=== PATIENT | female | born 1945 | race Caucasian/White ===

== ENCOUNTER → 2019-01-27 | Day surgery (SDC) | payer MEDICARE ==
[2019-01-25 15:44] LABS: BASOPHILS # (AUTO) 0.1 (0.0-0.1); BASOPHILS % 0.7 % (0.0-1.0); EOSINOPHILS # (AUTO) 0.3 (0.0-0.4); EOSINOPHILS % 2.7 % (0.0-6.0); HEMATOCRIT 41.9 % (34.2-44.1); HEMOGLOBIN 13.5 g/dL (12.0-16.0); MEAN CORPUSCULAR HEMOGLOBIN 29.3 pg (28-32); MEAN CORPUSCULAR HGB CONC 32.2 g/dL (31-35); MEAN CORPUSCULAR VOLUME 91.1 fL (81-99); MONOCYTES # (AUTO) 0.6 (0.2-0.8); NEUTROPHILS # (AUTO) 6.1 (2.1-6.9); NEUTROPHILS % 60.1 % (38.7-80.0); PLATELET COUNT 218 x10e3/uL (140-360); RED CELL DISTRIBUTION WIDTH 13.1 % (11.7-14.4)
[2019-01-25 15:54] LABS: INR 0.94; PROTHROMBIN TIME 13.1 seconds (11.9-14.5)
[2019-01-25 16:04] LABS: ALANINE AMINOTRANSFERASE 23 IU/L (0-55); ALBUMIN 3.6 g/dL (3.5-5.0); ALBUMIN/GLOBULIN RATIO 1.1 (0.8-2.0); ALKALINE PHOSPHATASE 91 IU/L (40-150); ANION GAP 10.9 mmol/L (8-16); BLOOD UREA NITROGEN 11 mg/dL (7-26); BUN/CREATININE RATIO 12 (6-25); CALCIUM 9.2 mg/dL (8.4-10.2); CARBON DIOXIDE 32 mmol/L (22-29); CHLORIDE 100 mmol/L (98-107); EST GLOMERULAR FILTRATION RATE > 60 ML/MIN (60-); GLUCOSE 104 mg/dL (74-118); POTASSIUM 3.9 mmol/L (3.5-5.1); SODIUM 139 mmol/L (136-145)
[2019-01-27] VITALS (9 sets, daily range): BP systolic 110–171; BP diastolic 56–85
[~2019-01-27] VITALS: Ht 167.6 cm; Wt 121.6 kg
[~2019-01-27] MED LIST: ACETAMINOPHEN325 M1 PO; ALEVE220 MG PO; AMITRIPTYLINE H25 MG PO; ATENOLOL50 MG PO; FENTANYL CITRATE/PF 100MCG/2 ML INJ ONE; HEPARIN SOD/SOD CHLORIDE 2,000 ML ONE; IOPAMIDOL 370 MG/ML 200 ML INFUS..BTL INJ ONE; LIDOCAINE HCL 2% LOCAL 20 ML VIAL ONE; LOPERAMIDE2 MG PO; MIDAZOLAM HCL 2 MG/2 ML VIAL ONE; MULTI-VITAMIN1 EACH PO; PANTOPRAZOLE SO40 MG PO; PHILLIPS' COLO1 EACH PO; SIMVASTATIN20 MG PO; SODIUM CHLORIDE 0.9% 1000ML 1,000 ML ONE; VERAPAMIL HCL 2.5 MG/ML 2 ML VIAL ONE; ZANTAC150 MG PO
--- OUTSIDE RECORDS SUMMARY | 2019-01-27 08:31 | XMS REPORT | Continuity of Care Document ---
Author Author [employer] Address Unknown Phone Unavailable Care Team Providers Care Real Estate Management Specialist Name Role Phone [employer] Unavailable Unavailable Problems Problem Status Onset Date Classification Date Reported Comments Source Encounter for screening mammogram for malignant neoplasm of breast 04/16/2018 10/27/2018 [facility] ROUTINE SCREENING LAST MMG W/MH //// Active 02/10/2018 [facility] MASS Active 05/14/2017 [facility] DX: ABN MAMMO PREV MMG SE 04-07-17 Active 05/01/2017 [facility] ROUTINE SCREENING LAST MMG W/ Active 03/12/2017 [facility] Z12.31 - ENCNTR SCREEN MAMMOGRAM FOR MA Active 04/03/2016 MEGAN Chen DX: ROUTINE SCREENING Active 04/03/2016 [facility] SCREENING Active 03/12/2016 [facility] Discharge Diagnosis: Allergic reaction caused by a drug 08/30/2015 09/02/2015 [facility] RASH Active 08/30/2015 [facility] LUMP ON RIGHT BREAST Active 03/27/2015 [facility] V76.12 - SCREEN MAMMOGRA Active 03/14/2015 MEGAN Chen Clostridium difficile Active Problem 10/27/2018 [facility] Diarrhea Active Problem 10/27/2018 [facility] GERD - Gastro-esophageal reflux disease Active Problem 10/27/2018 [facility] Hypercholesterolemia Active Problem 10/27/2018 [facility] Hypertension Active Problem 10/27/2018 [facility] Morbid obesity Active Problem 10/27/2018 [facility] UNSPECIFIED LUMP IN BREAST Active [facility] ENCNTR SCREEN MAMMOGRAM FOR MALIGNANT NE Active [facility] OTH ABN AND INCONCLUSIVE FINDINGS ON DX Active [facility] Medications Medication Details Route Status Patient Instructions Ordering Provider Order Date Source vancomycin 125 mg oral capsule 125 mg=1 cap, PO, Q6H, X 10 day, # 40 cap, 0 Refill(s) Active 08/31/2015 [facility] Sodium Chloride 0.154 MEQ/ML Injectable Solution 1,000 mL, 1,000 ml/hr, Infuse Over: 1 hr, Route: IV, 1,000, Drug form: INJ, ONCE, Priority: STAT, Dosing Weight 124.545 kg, Start date: 08/30/15 20:55:00, Duration: 1 doses or times, Stop date: 08/30/15 20:55:00 Inactive 08/31/2015 [facility] Benadryl 25 mg, Route: IVP, ONCE, Dosing Weight 124.545, kg, Priority: STAT, Start date: 08/30/15 18:04:00, Stop date: 08/30/15 18:04:00 Inactive 08/30/2015 [facility] Allergies, Adverse Reactions, Alerts Substance Category Reaction Severity Reaction type Status Date Reported Comments Source codeine Assertion Drug allergy Active [facility] vancomycin Assertion Drug allergy Active [facility] lisinopril Assertion Drug allergy Active [facility] Flagyl Assertion Drug allergy Active [facility] Immunizations No Data Provided for This Section Results Order Name Results Value Reference Range Date Interpretation Comments Source ELECTROLYTES AGAP 11.8 10.0 - 20.0 08/31/2015 [facility] ELECTROLYTES B/C Ratio 21 6 - 25 08/31/2015 [facility] ELECTROLYTES Globulin 3.7 2.0 - 4.0 08/31/2015 [facility] ELECTROLYTES A/G Ratio 1.0 0.7 - 1.6 08/31/2015 [facility] ELECTROLYTES Alk Phos 82 39 - 136 08/31/2015 [facility] ELECTROLYTES Bili Total 0.5 0.2 - 1.3 08/31/2015 [facility] ELECTROLYTES eGFR 44 08/31/2015 Result Comment: The eGFR is calculated using the CKD-EPI formula. In most young, healthy individuals the eGFR will be >90 mL/min/1.73m2. The eGFR declines with age. An eGFR of 60-89 may be normal in some populations, particularly the elderly, for whom the CKD-EPI formula has not been extensively validated. Use of the eGFR is not recommended in the following populations:

Individuals with unstable creatinine concentrations, including patients and those with serious co-morbid conditions.

Patients with extremes in muscle mass or diet.

The data above are obtained from the National Kidney Disease Education Program (NKDEP) which additionally recommends that when the eGFR is used in patients with extremes of body mass index for purposes of drug dosing, the eGFR should be multiplied by the estimated BMI. [facility] ELECTROLYTES ALT 31 0 - 65 08/31/2015 [facility] ELECTROLYTES AST 22 0 - 37 08/31/2015 [facility] ELECTROLYTES BUN 26 7 - 22 08/31/2015 [facility] ELECTROLYTES Creatinine Lvl 1.25 0.50 - 1.40 08/31/2015 [facility] ELECTROLYTES Sodium Lvl 138 135 - 145 08/31/2015 [facility] ELECTROLYTES Glucose Lvl 112 70 - 99 08/31/2015 [facility] ELECTROLYTES Total Protein 7.4 6.4 - 8.4 08/31/2015 [facility] ELECTROLYTES Potassium Lvl 3.8 3.5 - 5.1 08/31/2015 [facility] ELECTROLYTES Albumin Lvl 3.7 3.5 - 5.0 08/31/2015 [facility] ELECTROLYTES Chloride Lvl 101 95 - 109 08/31/2015 [facility] ELECTROLYTES CO2 29 24 - 32 08/31/2015 [facility] ELECTROLYTES Calcium Lvl 8.7 8.5 - 10.5 08/31/2015 [facility] HEMATOLOGY Monocytes # 0.8 0.0 - 0.8 08/31/2015 [facility] HEMATOLOGY Lymphocytes # 2.4 1.0 - 5.5 08/31/2015 [facility] HEMATOLOGY Segs-Bands # 6.9 1.5 - 8.1 08/31/2015 [facility] HEMATOLOGY Lymphocytes 23.6 20.0 - 40.0 08/31/2015 [facility] HEMATOLOGY Basophils 0.7 0.0 - 1.0 08/31/2015 [facility] HEMATOLOGY Basophils # 0.1 0.0 - 0.2 08/31/2015 [facility] HEMATOLOGY Eosinophils # 0.1 0.0 - 0.5 08/31/2015 [facility] HEMATOLOGY Segs 66.9 45.0 - 75.0 08/31/2015 [facility] HEMATOLOGY Monocytes 7.5 2.0 - 12.0 08/31/2015 [facility] HEMATOLOGY Eosinophils 1.3 0.0 - 4.0 08/31/2015 [facility] HEMATOLOGY Platelet 235 133 - 450 08/31/2015 [facility] HEMATOLOGY MPV 8.7 7.4 - 10.4 08/31/2015 [facility] HEMATOLOGY RDW 12.6 11.5 - 14.5 08/31/2015 [facility] HEMATOLOGY MCH 28.1 27.0 - 31.0 08/31/2015 [facility] HEMATOLOGY MCHC 32.8 32.0 - 36.0 08/31/2015 [facility] HEMATOLOGY Hct 42.3 36.0 - 48.0 08/31/2015 [facility] HEMATOLOGY MCV 85.7 80.0 - 98.0 08/31/2015 [facility] HEMATOLOGY WBC 10.3 3.7 - 10.4 08/31/2015 [facility] HEMATOLOGY RBC 4.94 4.20 - 5.40 08/31/2015 [facility] HEMATOLOGY Hgb 13.9 12.0 - 16.0 08/31/2015 [facility] Pathology Reports No Data Provided for This Section Diagnostic Reports Report Value Date Source Breast Mammo Scrn KARUNA w garry incl CAD MA BILATERAL DIGITAL SCREENING MAMMOGRAM 3D/2D WITH CAD: 04/09/2018 CLINICAL: /Routine. Current study was evaluated with a Computer Aided Detection (CAD) system. COMPARISON:Comparison is made to exams dated: 05/19/2017 mammogram, 04/07/2017 mammogram, 04/30/2016 mammogram, 04/05/2015 mammogram - [facility], 02/14/2014 mammogram, and 01/26/2013 mammogram - [facility]. TECHNIQUE: Digital Breast Tomosynthesis was performed and utilized for Interpretation. Insmeda Version 1.3 was utilized for computer aided detection. FINDINGS: The tissue of both breasts is heterogeneously dense, which could obscure detection of small masses. There are benign appearing calcifications and masses in both breasts. There also is a biopsy clip in the left breast. There are mole markers on both breasts. No significant masses, calcifications, or other findings are seen in either breast. There has been no significant interval change. IMPRESSION: BENIGN RECOMMENDATION:There is no mammographic evidence of malignancy. A 1 year screening mammogram is recommended.(04/10/2019) This exam was interpreted at [id number] for [facility] [place]. Natasha lion/hubert:04/09/2018 14:50:31 Nurse Staff Community Health(s): Mary Martin, [facility] letter sent: BI-RADS 1/2 Dense Mammogram BI-RADS: 2 Benign 04/09/2018 [facility] Breast Mammo Diag UNI incl CAD MA CLINICAL: Post biopsy clip confirmation mammogram after ultrasound biopsy. Current study was evaluated with a Computer Aided Detection (CAD) system. COMPARISON:Comparison is made to exams dated: 04/07/2017 mammogram, 04/30/2016 mammogram, 04/05/2015 mammogram, 05/19/2017 ultrasound biopsy, 05/14/2017 ultrasound, and 04/05/2015 ultrasound - [facility]. TECHNIQUE: Mammographic views were obtained using digital acquisition. Insmeda Version 1.3 was utilized for computer aided detection. FINDINGS: The tissue of left breast is heterogeneously dense, which could obscure detection of small masses. Post procedure digital mammogram demonstrates the biopsy clip in appropriate position. No other significant interval change. There are benign appearing scattered calcifications in the left breast. There are mole markers on the left breast. IMPRESSION: POST PROCEDURE MAMMOGRAM FOR MARKER PLACEMENT RECOMMENDATION:Biopsy clip is in appropriate position. Please see biopsy report for further details. Follow up with ACR/SBI guidelines. This exam was interpreted at [id number] for [facility]. Natasha lion/hubert:05/19/2017 15:05:03 Nurse Staff Community Health(s): Sadia Contreras, [facility] Mammogram BI-RADS: Post-procedure mammogram for marker placement 05/19/2017 [facility] BX Uni w Clip Primary Side US CLINICAL: Left breast mass 3 o'clock. PATIENT CONSENT: Oral and written informed consent was obtained. Risks, benefits, and alternatives were discussed with the patient. Risks include but are not limited to pain, infection, bleeding, incomplete procedure, repeat procedure, pneumothorax, damage to surrounding tissues, and allergic reaction. The patient understands the plan and wishes to proceed. A time out was performed immediately prior to the procedure to confirm the patient's identity (name/date of ) and correct procedure site. Correlation is made to exams dated: 04/05/2015 ultrasound, 05/14/2017 ultrasound, 04/07/2017 mammogram, 04/30/2016 mammogram, 04/05/2015 mammogram - [facility], and 02/14/2014 mammogram - [facility]. An ultrasound guided biopsy using real-time ultrasound was performed for the concerning 5 mm taller than wide circumscribed oval mass located in the left breast at 3 o'clock middle depth 2 cm from the nipple. This was described on the previous ultrasound report. The skin was prepped in the usual manner. 5 ccs of 1% lidocaine was administered during the procedure. The abnormality was approached from the lateral aspect. A 14 gauge biopsy needle was placed adjacent to the abnormality through an introducer device under ultrasound guidance. Once the needle was documented to be in the correct location, multiple specimens were obtained using an Achieve automated firing device. A Gel Liang UltraCor braided R/omega shaped clip was inserted into the biopsy cavity. Post procedure digital mammographic and ultrasound imaging interpreted on a dedicated mammography workstation demonstrates the clip at the targeted area and partial removal of the abnormality. [facility]. IMPRESSION: ULTRASOUND GUIDED BIOPSY BENIGN Ultrasound guided biopsy of the 5 mm taller than wide mass in the left breast at 3 o'clock middle depth 2 cm from the nipple was successful with no apparent post procedure complications. Pathology indicates benign results - 'Fragments of fibroadenomatoid nodule with adenosis and associated microcalcifications. Negative for in situ or invasive carcinoma'. Pathology results are concordant with imaging findings. Return to annual mammogram screening schedule is recommended.(04/07/2018) This exam was interpreted at [id number] for [facility]. Natasha robbinst/:05/22/2017 09:32:22 Nurse Staff Community Health(s): Gui Hahn [facility] letter sent: Post Bx Results 05/19/2017 [facility] Breast Complete Karuna US COMPLETE ULTRASOUND OF BOTH BREASTS AND AXILLA: 05/14/2017 CLINICAL: Dense breasts abnormal mammogram, mammographic nodule/density. COMPARISON:Comparison is made to exams dated: 04/07/2017 mammogram, 04/30/2016 mammogram, 04/05/2015 ultrasound, 04/05/2015 mammogram - [facility], 02/14/2014 mammogram, and 01/26/2013 mammogram - [facility]. TECHNIQUE: Color flow and real-time ultrasound of both breasts four quadrants, retroareolar, and axilla regions were performed. Sharp scale images of the real- time examination were reviewed. FINDINGS: There are benign scattered cysts both breasts that correlate with mammography. There is a 5 mm irregular mass with an indistinct margin in the left breast at 3 o'clock middle depth 2 cm from the nipple. This irregular mass is hypoechoic with posterior acoustic shadowing. No abnormalities were seen sonographically in either axilla. IMPRESSION: SUSPICIOUS OF MALIGNANCY The 5 mm irregular mass in the left breast is at an intermediate suspicion for malignancy. An ultrasound guided biopsy is recommended. The physician's office was notified. The results were reviewed with the patient. SUMMARY: The patient scheduled her procedure prior to leaving the [facility]. The physician's office was notified at 1420 hours on the day of the exam of the above findings and recommendations. An order for this procedure will need to be provided by the referring physician. This exam was interpreted at [id number] for [facility]. Natasha robbinst/:05/14/2017 14:35:35 Nurse Staff Community Health(s): Gui Hahn [facility] letter sent: BI-RADS 4/5 Ultrasound BI-RADS: 4b Suspicious abnormality - intermediate suspicion of malignancy 05/14/2017 [facility] Breast Mammo Scrn KARUNA incl CAD MA BILATERAL DIGITAL SCREENING MAMMOGRAM WITH CAD: 04/07/2017 CLINICAL: /Routine. Current study was evaluated with a Computer Aided Detection (CAD) system. COMPARISON:Comparison is made to exams dated: 04/30/2016 mammogram, 04/05/2015 mammogram - [facility], 02/14/2014 mammogram, 01/26/2013 mammogram - [facility], 01/23/2012 mammogram, and 01/02/2011 mammogram - [facility]. TECHNIQUE: Mammographic views were obtained using digital acquisition. Insmeda Version 1.3 was utilized for computer aided detection. The tissue of both breasts is extremely dense. This may lower the sensitivity of mammography. FINDINGS: Multiple benign appearing, circumscribed masses are noted bilaterally which are fluctuating in size most consistent with benign cysts. There are benign appearing scattered calcifications in both breasts. There are mole markers on both breasts. No significant masses, calcifications, or other findings are seen in either breast. There has been no significant interval change. IMPRESSION: BENIGN RECOMMENDATION:Multiple benign appearing, circumscribed masses are noted bilaterally which are fluctuating in size most consistent with benign cysts. Ultrasound may be performed for confirmation and to exclude underlying pathology. There is no mammographic evidence of malignancy. A 1 year screening mammogram is recommended.(04/08/2018) This exam was interpreted at [id number] for [facility]. SUMMARY: As the patient has dense breast parenchyma, this could obscure additional abnormalities. The patient would likely benefit from a supplemental screening test such as bilateral ultrasound. This should be discussed with the patient by the referring physician. Alanis Ladd M.D. ap/penrad:04/07/2017 14:41:49 Nurse Staff Community Health(s): Chitra Padilla RT(R)(M), [facility] letter sent: BI-RADS 1/2 Dense Mammogram BI-RADS: 2 Benign 04/07/2017 [facility] Digital Mammo Screening Karuna MA - DIGITAL MAMMO SCREENING KARUNA MA BILATERAL DIGITAL SCREENING MAMMOGRAM WITH CAD: 04/30/2016 CLINICAL: Routine. Current study was evaluated with a Computer Aided Detection (CAD) system. Comparison is made to exams dated: 04/05/2015 mammogram - [facility], 02/14/2014 mammogram, 01/26/2013 mammogram - [facility], 01/23/2012 mammogram, 01/02/2011 mammogram and 12/28/2009 mammogram - [facility]. There are scattered fibroglandular densities in both breasts. There are benign appearing scattered calcifications and densities in both breasts. There are mole markers on both breasts. No significant masses, calcifications, or other findings are seen in either breast. There has been no significant interval change. IMPRESSION: BENIGN There is no mammographic evidence of malignancy. A 1 year screening mammogram is recommended. Natasha Petty M.D. jt/penrad:04/30/2016 15:57:59 Nurse Staff Community Health: Sadia Contreras, [facility] This exam was dictated and interpreted by [id number] for [facility]. letter sent: Normal exam Mammogram BI-RADS: 2 Benign 04/30/2016 [facility] Breast Complete Uni US - BREAST COMPLETE UNI US/R ULTRASOUND OF RIGHT BREAST AND RIGHT AXILLA: 04/05/2015 CLINICAL: Right breast superior lumpiness/nodularity. Comparison is made to exams dated: 04/05/2015 mammogram - [facility], 02/14/2014 mammogram, 01/26/2013 mammogram - [facility], 01/23/2012 mammogram, 01/02/2011 mammogram and 12/28/2009 mammogram - [facility]. Color flow and real-time ultrasound of the right breast and axilla were performed. Sharp scale images of the real-time examination were reviewed. All 4 quadrants, the retroareolar region and axilla are evaluated in this exam. There are three small benign simple and minimally complicated, less than 5 mm in size, cysts right breast at 12 o'clock that correlate with mammography. No abnormalities were seen sonographically in the right axilla. IMPRESSION: BENIGN There is no sonographic evidence of malignancy. There are no suspicious mammographic or sonographic abnormalities seen in the right breast to correspond with the palpable nodularities by the referring physician in the superior aspect which likely represents normal fibroglandular tissue. A 1 year screening mammogram is recommended. The results were reviewed with the patient. The patient denies any areas of clinical concern herself. Natasha lion/:04/05/2015 11:19:49 Nurse Staff Community Health: Gui Hahn, [facility] This exam was dictated and interpreted by [id number] for [facility]. letter sent: Normal exam Ultrasound BI-RADS: 2 Benign 04/05/2015 [facility] Digital Mammo DX Karuna MA - DIGITAL MAMMO DX KARUNA MA BILATERAL DIGITAL DIAGNOSTIC MAMMOGRAM WITH CAD: 04/05/2015 CLINICAL: Mobile palpable Breast Lump superior right breast. Current study was evaluated with a Computer Aided Detection (CAD) system. Comparison is made to exams dated: 02/14/2014 mammogram, 01/26/2013 mammogram - [facility], 01/23/2012 mammogram, 01/02/2011 mammogram and 12/28/2009 mammogram - [facility]. There are scattered fibroglandular densities in both breasts. There are benign appearing scattered calcifications and densities in both breasts. There are mole markers on both breasts. No significant masses, calcifications, or other findings are seen in either breast. There has been no significant interval change. IMPRESSION: INCOMPLETE: NEEDS ADDITIONAL IMAGING EVALUATION There are no new/suspicious mammographic abnormalities seen in the right breast to correspond with the physician palpated nodularities in the superior aspect, however ultrasound is recommended. The results were reviewed with the patient. SUMMARY: Ultrasound will be performed at this time; please see dedicated separate report. Natasha lion/:04/05/2015 11:20:48 Nurse Staff Community Health: Maren Eden, [facility] This exam was dictated and interpreted by [id number] for [facility]. Mammogram BI-RADS: 0 Indeterminate 04/05/2015 [facility] Consultation Notes No Data Provided for This Section Discharge Summaries No Data Provided for This Section History and Physicals No Data Provided for This Section Vital Signs Vital Sign Value Date Comments Source Systolic (mm Hg) 142 08/31/2015 [facility] Diastolic (mm Hg) 47 08/31/2015 [facility] Respitory Rate 18 08/31/2015 [facility] Temperature Oral (F) 97.9 F 08/31/2015 [facility] Heart Rate 63 08/31/2015 [facility] Systolic (mm Hg) 138 08/31/2015 [facility] Diastolic (mm Hg) 60 08/31/2015 [facility] Respitory Rate 18 08/31/2015 [facility] Heart Rate 68 08/31/2015 [facility] BMI Calculated 44.32 08/30/2015 [facility] Weight 124.545 08/30/2015 [facility] Height 167.64 cm 08/30/2015 [facility] Heart Rate 73 08/30/2015 [facility] Respitory Rate 17 08/30/2015 [facility] Temperature Oral (F) 97.8 F 08/30/2015 [facility] Systolic (mm Hg) 140 08/30/2015 [facility] Diastolic (mm Hg) 74 08/30/2015 [facility] Encounters Location Location Details Encounter Type Encounter Number Reason For Visit Attending Provider ADM Date DC Date Status Source [facility] [id number] Keri Canada 02/14/2014 02/15/2014 MEGAN [facility] [facility] [id number] Keri Canada 02/17/2014 02/18/2014 [facility] Outpatient [id number] Keri Canada 04/05/2015 04/06/2015 [facility] [id number] Ismael Fountain 08/30/2015 08/31/2015 [facility] Outpatient [id number] Non Physician 04/30/2016 05/01/2016 [facility] Outpatient [id number] MICHAEL ESTRELLA 01/25/2017 Active [facility] Outpatient [id number] Non Physician 04/07/2017 04/08/2017 [facility] Outpatient [id number] Keri Canada 05/14/2017 05/15/2017 [facility] Outpatient [id number] Keri Canada 05/19/2017 05/20/2017 [facility] Outpatient [id number] Keri Canada 04/09/2018 04/10/2018 [facility] Procedures Procedure Code Date Perfomer Comments Source Cholecystectomy [id number] [facility] Hemorrhoidectomy [id number] [facility] Hysterectomy [id number] [facility] Rectal operation [id number] [facility] Assessment and Plan No Data Provided for This Section Plan of Care No Data Provided for This Section Social History Social History Date Source Social History TypeResponse Smoking Status Never smoker; Exposure to Tobacco Smoke None; Cigarette Smoking Last 365 Days No; Reg Smoking Cessation Counseling No entered on: 01/25/17 01/25/2017 [facility] Family History No Data Provided for This Section Advance Directives No Data Provided for This Section Functional Status No Data Provided for This Section
--- OUTSIDE RECORDS SUMMARY | 2019-01-27 08:31 | XMS REPORT | Summary of Care ---
Author Organization Unknown Address Unknown Phone Unavailable Encounter HQ Encntr_remingtonabner(OLAMIDE) [id number] Date(s): 02/14/14 - 02/14/14 [facility] Outpatient Imaging [place] [address] [place], [place] [id number] [place] [address] Discharge Disposition: Home Physician Attending: Keri Canada MD Reason for Visit V76.12 - SCREEN MAMMOGRA Problem List No data available for this section Allergies, Adverse Reactions, Alerts No data available for this section Medications No data available for this section Medications Administered During Your Visit No data available for this section Immunizations No data available for this section
--- OUTSIDE RECORDS SUMMARY | 2019-01-27 08:31 | XMS REPORT | Summary of Care ---
Author Author [facility] Organization [facility] Address Unknown Phone Unavailable Encounter HQ Maricarmen_demian(FIN) [id number] Date(s): 04/09/18 - 04/09/18 [facility] [address] [place] [address]- Encounter Diagnosis Encounter for screening mammogram for malignant neoplasm of breast (Final) - 04/15/18 Discharge Disposition: Home or Self Care Attending Physician: Keri Canada MD Referring Physician: Physician, Non Associated MD Vital Signs No data available for this section Problem List Condition Effective Dates Status Health Status Informant Clostridium Active difficile(Confirmed) Diarrhea(Confirmed) Active GERD - Active Gastro-esophageal reflux disease(Confirmed) Hypercholesterolemia Active (Confirmed) Hypertension(Confirm Active ed) Morbid Active obesity(Confirmed) Allergies, Adverse Reactions, Alerts Substance Reaction Severity Status codeine Active vancomycin Active lisinopril Active Flagyl Active Medications No data available for this section Results No data available for this section Immunizations No data available for this section Procedures Procedure Date Related Diagnosis Body Site Status Cholecystectomy Completed Hemorrhoidectomy Completed Hysterectomy Completed Rectal operation Completed Social History Social History Type Response Smoking Status Never smoker; Exposure to Tobacco Smoke None; Cigarette Smoking Last 365 Days No; Reg Smoking Cessation Counseling No entered on: 01/25/17 Assessment and Plan No data available for this section
--- OUTSIDE RECORDS SUMMARY | 2019-01-27 08:31 | XMS REPORT | Summary of Care ---
Author Author [facility] Organization [facility] Address Unknown Phone Unavailable Encounter HQ Destiny(OLAMIDE) [id number] Date(s): 05/19/17 - 05/19/17 [facility] [address] [place] [address]- Discharge Disposition: Home or Self Care Attending Physician: Keri Canada MD Referring Physician: Keri Canada MD Vital Signs No data available for [...] Procedures Procedure Date Related Diagnosis Body Site Cholecystectomy Hemorrhoidectomy Hysterectomy Rectal operation Social History Social History Type Response Smoking Status Never smoker; Exposure to Tobacco Smoke None; Cigarette Smoking Last 365 Days No; Reg Smoking Cessation Counseling No Assessment and Plan No data available for this section
--- OUTSIDE RECORDS SUMMARY | 2019-01-27 08:31 | XMS REPORT | Summary of Care ---
Author Author [facility] Organization [facility] Address Unknown Phone Unavailable Encounter HQ Maricarmen_demian(FIN) [id number] Date(s): 04/07/17 - 04/07/17 [facility] [address] [place] [address]- Discharge Disposition: Home or Self Care Attending [...] Alerts Substance Reaction Severity Status codeine Active Flagyl Active lisinopril Active vancomycin Active Medications No data available for this [...]
--- OUTSIDE RECORDS SUMMARY | 2019-01-27 08:31 | XMS REPORT | Summary of Care ---
Author Author [facility] Organization [facility] Address Unknown Phone Unavailable Encounter HQ Destiny(FIN) [id number] Date(s): 05/14/17 - 05/14/17 [facility] [address] [place] [address]- [phone] Discharge Disposition: Home or Self Care Attending [...]
--- OUTSIDE RECORDS SUMMARY | 2019-01-27 08:32 | XMS REPORT ---
Author Author [facility] Address Unknown Phone Unavailable Care Team Providers Care Golf Ball Winder Name Role Phone Unavailable Unavailable Problems This patient has no known problems. Allergies, Adverse Reactions, Alerts This patient has no known allergies or adverse reactions. Medications This patient has no known medications.
--- OUTSIDE RECORDS SUMMARY | 2019-01-27 08:32 | XMS REPORT | Summary of Care ---
Author Author [facility] Organization [facility] Address Unknown Phone Unavailable Encounter HQ Patricior_demian(FIN) [id number] Date(s): 04/30/16 - 04/30/16 [facility] [address] [place] [address]- Discharge Disposition: Home or Self Care Attending Physician: Keri Canada MD Referring Physician: Physician, Non Associated MD Vital Signs No data available for this section Problem List Condition Effective Dates Status Health Status Informant Clostridium Active difficile(Confirmed) Diarrhea(Confirmed) Active GERD - Active Gastro-esophageal reflux disease(Confirmed) Hypercholesterolemia Active (Confirmed) Hypertension(Confirm Active ed) Allergies, Adverse Reactions, Alerts Substance Reaction Severity Status codeine Active Medications No data available for this [...]
--- OUTSIDE RECORDS SUMMARY | 2019-01-27 08:32 | XMS REPORT | Summary of Care ---
Author Author [facility] Organization [facility] Address Unknown Phone Unavailable Encounter HQ Encntr_alias(FIN) [id number] Date(s): 04/05/15 - 04/05/15 [facility] [address] [place] [address]- Discharge Disposition: Home Attending Physician: Keri Canada MD Referring Physician: Keri Canada MD Vital Signs No data available for this section Problem List No data available for this section Allergies, Adverse Reactions, Alerts No data available for this section Medications No data available for this section Results No data available for this section Immunizations No data available for this section Procedures No data available for this section Social History No data available for this section Assessment and Plan No data available for this section
--- OUTSIDE RECORDS SUMMARY | 2019-01-27 08:32 | XMS REPORT | Summary of Care ---
Author Organization Unknown Address Unknown Phone Unavailable Encounter HQ Encntr_demian(OLAMIDE) [id number] Date(s): 02/17/14 - 02/17/14 [facility] Outpatient Imaging [place] [address] Discharge Disposition: Home Physician Attending: Keri Canada MD Reason for Visit V49.81 - ASYMPT POSTMENO Problem List No data available for this section Allergies, Adverse Reactions, Alerts No data available for this section Medications No data available for this section Medications Administered During Your Visit No data available for this section Immunizations No data available for this section
--- OUTSIDE RECORDS SUMMARY | 2019-01-27 08:32 | XMS REPORT | Summary of Care ---
Author Author [facility] Organization [facility] Address Unknown Phone Unavailable Encounter DENVER Dixon(OLAMIDE) [id number] Date(s): 08/30/15 - 08/30/15 [facility] [address] [place] [address]- Discharge Diagnosis: Allergic reaction caused by a drug Discharge Disposition: Home Attending Physician: Ismael Fountain MD Vital Signs 1 2 3 Most recent to oldest [Reference Range]: 167.64 cm (08/30/15 5:53 PM) Height 97.9 DegF (08/30/15 10:50 PM) 97.8 DegF (08/30/15 5:53 PM) Temperature Oral [96.4-99.1 DegF] 142/47 mmHg *HI* (08/30/15 10:50 PM) 138/60 mmHg (08/30/15 9:00 PM) 140/74 mmHg (08/30/15 5:53 PM) Blood Pressure [90-140/60-90 mmHg] 18 BRMIN (08/30/15 10:50 PM) 18 BRMIN (08/30/15 9:00 PM) 17 BRMIN (08/30/15 5:53 PM) Respiratory Rate [14-20 BRMIN] 63 bpm (08/30/15 10:50 PM) 68 bpm (08/30/15 9:00 PM) 73 bpm (08/30/15 5:53 PM) Peripheral Pulse Rate [60-100 bpm] 124.545 kg (08/30/15 5:53 PM) Weight 44.32 m2 (08/30/15 5:53 PM) Body Mass Index Problem List Condition Effective Dates Status Health Status Informant Clostridium Active difficile(Confirmed) Diarrhea(Confirmed) Active GERD - Active Gastro-esophageal reflux disease(Confirmed) Hypercholesterolemia Active (Confirmed) Hypertension(Confirm Active ed) Allergies, Adverse Reactions, Alerts Substance Reaction Severity Status codeine Active Medications Benadryl 25 mg, Route: IVP, ONCE, Dosing Weight 124.545, kg, Priority: STAT, Start date: 08/30/15 18:04:00, Stop date: 08/30/15 18:04:00 Start Date: 08/30/15 Stop Date: 08/30/15 Status: Completed Sodium Chloride 0.9% (Bolus) IV 1,000 mL, 1,000 ml/hr, Infuse Over: 1 hr, Route: IV, 1,000, Drug form: INJ, ONCE , Priority: STAT, Dosing Weight 124.545 kg, Start date: 08/30/15 20:55:00, Durat ion: 1 doses or times, Stop date: 08/30/15 20:55:00 Start Date: 08/30/15 Stop Date: 08/30/15 Status: Completed vancomycin 125 mg oral capsule 125 mg=1 cap, PO, Q6H, X 10 day, # 40 cap, 0 Refill(s) Start Date: 08/30/15 Stop Date: 09/09/15 Status: Ordered Results ELECTROLYTES Most recent to 1 oldest [Reference Range]: Sodium Lvl [135-145 138 mEq/L mEq/L] (08/30/15 9:32 PM) Potassium Lvl 3.8 mEq/L [3.5-5.1 mEq/L] (08/30/15 9:32 PM) Chloride Lvl [95-109 101 mEq/L mEq/L] (08/30/15 9:32 PM) CO2 [24-32 mEq/L] 29 mEq/L (08/30/15 9:32 PM) AGAP [10.0-20.0 11.8 mEq/L mEq/L] (08/30/15 9:32 PM) CHEM PANEL Most recent to 1 oldest [Reference Range]: Creatinine Lvl 1.25 mg/dL [0.50-1.40 mg/dL] (08/30/15 9:32 PM) eGFR 44 mL/min/1.73m2 1 *NA* (08/30/15 9:32 PM) BUN [7-22 mg/dL] 26 mg/dL *HI* (08/30/15 9:32 PM) B/C Ratio [6-25] 21 (08/30/15 9:32 PM) Glucose Lvl [70-99 112 mg/dL mg/dL] *HI* (08/30/15 9:32 PM) Total Protein 7.4 g/dL [6.4-8.4 g/dL] (08/30/15 9:32 PM) Albumin Lvl [3.5-5.0 3.7 g/dL g/dL] (08/30/15 9:32 PM) Globulin [2.0-4.0 3.7 g/dL g/dL] (08/30/15 9:32 PM) A/G Ratio [0.7-1.6] 1.0 (08/30/15 9:32 PM) Calcium Lvl 8.7 mg/dL [8.5-10.5 mg/dL] (08/30/15 9:32 PM) ALT [0-65 unit/L] 31 unit/L (08/30/15 9:32 PM) AST [0-37 unit/L] 22 unit/L (08/30/15 9:32 PM) Alk Phos [39-136 82 unit/L unit/L] (08/30/15 9:32 PM) Bili Total [0.2-1.3 0.5 mg/dL mg/dL] (08/30/15 9:32 PM) 1Result Comment: The eGFR is calculated using the [...] from the National Kidney Disease Education Program ( NKDEP) which additionally recommends that when the eGFR is used in patients with extremes of body mass index for purposes of drug dosing, the eGFR should be mul tiplied by the estimated BMI. HEMATOLOGY Most recent to 1 oldest [Reference Range]: WBC [3.7-10.4 K/CMM] 10.3 K/CMM (3/17/16 9:32 PM) RBC [4.20-5.40 4.94 M/CMM M/CMM] (08/30/15 9:32 PM) Hgb [12.0-16.0 g/dL] 13.9 g/dL (08/30/15 9:32 PM) Hct [36.0-48.0 %] 42.3 % (08/30/15 9:32 PM) MCV [80.0-98.0 fL] 85.7 fL (08/30/15 9:32 PM) MCH [27.0-31.0 pg] 28.1 pg (08/30/15 9:32 PM) MCHC [32.0-36.0 32.8 g/dL g/dL] (08/30/15 9:32 PM) RDW [11.5-14.5 %] 12.6 % (08/30/15 9:32 PM) Platelet [133-450 235 K/CMM K/CMM] (08/30/15 9:32 PM) MPV [7.4-10.4 fL] 8.7 fL (08/30/15 9:32 PM) Segs [45.0-75.0 %] 66.9 % (08/30/15 9:32 PM) Lymphocytes 23.6 % [20.0-40.0 %] (08/30/15 9:32 PM) Monocytes [2.0-12.0 7.5 % %] (08/30/15 9:32 PM) Eosinophils [0.0-4.0 1.3 % %] (08/30/15 9:32 PM) Basophils [0.0-1.0 0.7 % %] (08/30/15 9:32 PM) Segs-Bands # 6.9 K/CMM [1.5-8.1 K/CMM] (08/30/15 9:32 PM) Lymphocytes # 2.4 K/CMM [1.0-5.5 K/CMM] (08/30/15 9:32 PM) Monocytes # [0.0-0.8 0.8 K/CMM K/CMM] (08/30/15 9:32 PM) Eosinophils # 0.1 K/CMM [0.0-0.5 K/CMM] (08/30/15 9:32 PM) Basophils # [0.0-0.2 0.1 K/CMM K/CMM] (08/30/15 9:32 PM) Immunizations No data available for this section Procedures Procedure Date Related Diagnosis Body Site Cholecystectomy Hemorrhoidectomy Hysterectomy Rectal operation Social History Social History Type Response Smoking Status Never smoker; Exposure to Tobacco Smoke None; Cigarette Smoking Last 365 Days No; Reg Smoking Cessation Counseling No Assessment and Plan No data available for this section
--- OUTSIDE RECORDS SUMMARY | 2019-01-27 08:32 | XMS REPORT | Summary of Care ---
Author Author [facility] Organization [facility] Address Unknown Phone Unavailable Encounter HQ Encntr_alias(FIN) [id number] Date(s): 04/05/15 - 04/05/15 [facility] [address] [place] [address]- Discharge Disposition: Home Attending Physician: Keri Canada [...]
--- NOTE | 2019-01-27 11:15 | NUR ---
1115bedside report received from Hao GOODSON. Alert oriented and appropriate, PERRLA, respirations even and unlabored to room air. Pulses x4 extremities equal and strong. Pedal pulses PT/DP x4 Cap fill brisk < 3 sec. Skin warm and dry integrity appears Rt Tr band. IV 20g to let hand presents healthy w/o s/s of infiltration or complaint. Abdomen soft and supple. pt offered toileting, denies need to urinate or defecate. No personal affects with patient. Family at bedside. Pt and family verbalizes understanding of POC. Currently w/o complaint of pain or need. Tr band decrease at 1130am. No gross issue pain,pallor,pressure or dysrhythmia. ds/rn
--- NOTE | 2019-01-27 11:30 | NUR ---
RADIAL Compression removal: Initial Cuff volume 13 cc 1130 -2 cc Removed No hematoma/bleeding noted with normal neurovascular function. 1145 -2 cc Removed No hematoma/ bleeding noted with normal neurovascular function. 1200 -2cc Removed No hematoma/bleeding noted with normal neurovascular function. Air removal completed. 12n prepped and ready for dc. f/o care discussed with family per Hao GOODSON Stasis achieved sterile 2x2,Tegaderm, Coban dressing No hematoma, bleeding noted with normal neurovascular function. Wrist splint in place. Pt instructed on POC. Ds/Rn
--- NOTE | 2019-01-27 12:19 | NUR ---
Pt discharged home with son and granddaughter. Discharge instructions reviewed with patient and copies provided; understanding verbalized. IV d/c'd intact and dressing applied. All personal belongings packed and sent with patient.
--- NOTE | 2019-01-27 13:52 | Operative Report ---
DATE OF PROCEDURE: SURGEON: Tyree Aleman DO PROCEDURES PERFORMED: 1. Conscious sedation, 26 minutes. 2. Selective coronary angiography x2. 3. Left heart catheterization. PREPROCEDURE DIAGNOSIS: Abnormal stress test. POSTPROCEDURE DIAGNOSIS: Abnormal stress test. ESTIMATED BLOOD LOSS: Less than 20 mL. SPECIMENS REMOVED: None. PROCEDURE IN DETAIL: After informed consent was obtained, the patient was brought to the cardiac catheterization laboratory in a fasting and nonsedated state. Bilateral groins were prepped and draped in the usual sterile fashion. A 2% lidocaine was instilled over the right wrist for local anesthesia and a 6-Mozambican sheath was placed. Diagnostic coronary angiography and left heart catheterization was performed using a TIG catheter. The patient tolerated the procedure well with no immediate complications, and brought back to her room in stable condition. FINDINGS: 1. Left main coronary artery is patent. 2. Left anterior descending artery is patent and reaches the left ventricular apex. 3. Left circumflex coronary artery is patent with one obtuse marginal vessel. 4. Right coronary artery is a dominant vessel with no significant disease. 5. Left ventricular end-diastolic pressure is 13 mmHg. IMPRESSION: No significant coronary artery disease. RECOMMENDATIONS: Continue aggressive medical therapy. Tyree Aleman DO BM/MODL /[id number]
== END | disposition home or self-care (01) ==
LOC: CATH LAB 08:29
PROVIDERS: ATTEND Internal Medicine Cardiovascular Disease
DX: I20.8 Other forms of angina pectoris (principal); I10 Essential (primary) hypertension; E78.5 Hyperlipidemia, unspecified; K21.9 Gastro-esophageal reflux disease without esophagitis; Z88.6 Allergy status to analgesic agent; Z88.1 Allergy status to other antibiotic agents; Z01.812 Encounter for preprocedural laboratory examination; Z68.41 Body mass index [BMI] 40.0-44.9, adult
CPT/HCPCS: 36415; 80053; 85025; 85610; 93458; C1887; J2001; J2250; J3010; J7030; Q9967